=== PATIENT | female | born 1960 | race Caucasian/White ===

== ENCOUNTER 2021-01-25 11:03 | Emergency (ER) | payer OTHER ==
[2021-01-25] MEDS ORDERED: Pantoprazole 40 MG Vial IVPUSH ONE (11:42)
[2021-01-25] MEDS ORDERED: Alum Hydrox/Mag Hydrox/Simeth 30 ML, Lidocaine 2% 15 ML PO ONE ×2 (11:42)
[2021-01-25] MEDS ORDERED: Sodium Chloride 0.9% 1,000 ML IV SCH ×2 (11:45→15:15)
--- NOTE | 2021-01-25 11:51 | EDM.PDOC ---
ED HPI GENERAL MEDICAL PROBLEM - General Chief Complaint: Abdominal Pain Stated Complaint: VOMITING/LOSS OF APPETITE Time Seen by Provider: 01/25/21 11:17 Source of Information: Reports: Patient, RN Notes Reviewed History Limitations: Reports: No Limitations - History of Present Illness INITIAL COMMENTS - FREE TEXT/NARRATIVE: Patient is a 60-year-old female who presents to the ER for evaluation of her epigastric discomfort. The patient notes that she has been having these issues since around November. She was put on Zoloft for depression, and notes that her vomiting and epigastric discomfort started shortly after taking Zoloft. She states she has stopped taking this since then. Notes that she throws up all the time, even when she brushes her teeth. She did go to the [facility] in November, and was prescribed Zofran at that time, she states that she took 2 doses today however nothing seems to be helping much. States that she has not been able to keep much down. She feels shaky, slightly lightheaded when walking around, she is complaining of epigastric abdominal discomfort, like a burning in nature. States is there all the time. She has not had EGD, but has had colonoscopy in the past. Patient states that she has not had a fever, chills, cough or shortness of breath that has worsened for her. She states that she does not smoke, the last time she used alcohol was sometime in November around [facility] [place], she states this made her so sick that she has not drank alcohol since. She denies any illicit drug use. She states she has a history of hyper tension and thyroid issues. Middle Abdomen Pain Score (Numeric/FACES): 5 - Related Data Allergies Allergy/AdvReac Type Severity Reaction Status Date / Time PEMA Inhibitors Allergy Other Verified 01/25/21 11:16 Home Meds: Home Meds Cetirizine [ZyrTEC] 10 mg PO DAILY 01/25/21 [History] Levothyroxine Sodium [Synthroid] 75 mcg PO DAILY 01/25/21 [History] Metoprolol Succinate 50 mg PO DAILY 01/25/21 [History] Rosuvastatin [Crestor] 20 mg PO DAILY 01/25/21 [History] Spironolactone [Aldactone] 25 mg PO BID 01/25/21 [History] amLODIPine Besylate [Amlodipine Besylate] 10 mg PO DAILY 01/25/21 [History] Past Medical History HEENT History: Reports: Allergic Rhinitis Cardiovascular History: Reports: Hypertension Psychiatric History: Reports: Depression Endocrine/Metabolic History: Reports: Hypothyroidism ED ROS GENERAL - Review of Systems Review Of Systems: Comprehensive ROS is negative, except as noted in HPI. ED EXAM, GI/ABD - Physical Exam Exam: See Below Exam Limited By: No Limitations General Appearance: Alert, WD/WN, No Apparent Distress Throat/Mouth: Normal Inspection, Normal Lips, Normal Teeth, Normal Gums, Normal Oropharynx, Normal Voice, No Airway Compromise Respiratory/Chest: No Respiratory Distress, Lungs Clear, Normal Breath Sounds, No Accessory Muscle Use, Chest Non-Tender Cardiovascular: Normal Peripheral Pulses, Regular Rate, Rhythm, No Edema GI/Abdominal Exam: Normal Bowel Sounds, Soft, No Distention, No Mass, Tender (mild epigastric discomfort) Extremities: Normal Inspection, Normal Capillary Refill Neurological: Alert, Oriented, Normal Cognition, No Motor/Sensory Deficits Psychiatric: Normal Affect, Normal Mood Skin Exam: Warm, Dry, Intact, Normal Color, No Rash #1 Interpretation EKG Date: 01/25/21 Time: 11:56 Rhythm: NSR Rate (Beats/Min): 70 [place]: Normal P-Wave: Present QRS: Normal ST-T: Normal QT: Prolonged (QTC at 534) EKG Interpretation Comments: No obvious ischemia or acute ST changes noted, reviewed by myself and Dr. Lehman. Course - Vital Signs Last Recorded V/S: Last Vital Signs Temp 96.5 F L 01/25/21 11:23 Pulse 67 01/25/21 11:23 Resp 14 01/25/21 11:23 BP 142/96 H 01/25/21 11:23 Pulse Ox 94 L 01/25/21 11:23 - Orders/Labs/Meds Orders: Active Orders 24 hr Category Date Time Status EKG Documentation Completion [RC] STAT Care 01/25/21 11:41 Active COVID-19/FLU A+B [MOLEC] Stat Lab 01/25/21 14:10 Received UA W/MICROSCOPIC [URIN] Stat Lab 01/25/21 11:41 Ordered Potassium Chloride [KCl in Water 10 MEQ/100 ML] 10 meq Med 01/25/21 13:45 Active Premix Bag 1 bag IV Q1H Sodium Chloride 0.9% [Normal Saline] 1,000 ml Med 01/25/21 11:45 Active IV ASDIRECTED Sodium Chloride 0.9% [Saline Flush] Med 01/25/21 12:05 Active 10 ml FLUSH ONETIME PRN Medication Orders Sodium Chloride (Normal Saline) 1,000 mls @ 999 mls/hr IV ASDIRECTED SELENE Last Admin: 01/25/21 12:12 Dose: 999 mls/hr Documented by: YANICK Potassium Chloride 10 meq/ (Premix) 100 mls @ 100 mls/hr IV Q1H SELENE Stop: 01/25/21 17:44 Last Admin: 01/25/21 14:43 Dose: 100 mls/hr Documented by: ANGELIQUE Sodium Chloride (Sodium Chloride 0.9% 10 Ml Syringe) 10 ml FLUSH ONETIME PRN PRN Reason: IV FLUSH Last Admin: 01/25/21 12:28 Dose: 10 ml Documented by: Admin: 01/25/21 12:15 Dose: 10 ml Documented by: YANICK Labs: Laboratory Tests 01/25/21 01/25/21 01/25/21 Range/Units 12:10 12:10 12:10 WBC 12.53 H (3.98-10.04) K/mm3 RBC 4.31 (3.98-5.22) M/mm3 Hgb 14.0 (11.2-15.7) gm/dl Hct 41.1 (34.1-44.9) % MCV 95.4 H (79.4-94.8) fl MCH 32.5 H (25.6-32.2) pg MCHC 34.1 (32.2-35.5) g/dl RDW Std Deviation 45.1 (36.4-46.3) fL Plt Count 209 (182-369) K/mm3 MPV 9.8 (9.4-12.3) fl Neut % (Auto) 81.1 H (34.0-71.1) % Lymph % (Auto) 11.3 L (19.3-51.7) % [place] % (Auto) 6.5 (4.7-12.5) % Eos % (Auto) 0.8 (0.7-5.8) Baso % (Auto) 0.3 (0.1-1.2) % Neut # (Auto) 10.16 H (1.56-6.13) K/mm3 Lymph # (Auto) 1.41 (1.18-3.74) K/mm3 [place] # (Auto) 0.82 H (0.24-0.36) K/mm3 Eos # (Auto) 0.10 (0.04-0.36) K/mm3 Baso # (Auto) 0.04 (0.01-0.08) K/mm3 Sodium 136 (136-145) mEq/L Potassium 2.6 L (3.5-5.1) mEq/L Chloride 97 L (98-107) mEq/L Carbon Dioxide 29 (21-32) mEq/L Anion Gap 12.6 (5-15) BUN 28 H (7-18) mg/dL Creatinine 4.9 H (0.55-1.02) mg/dL Est Cr Clr Drug Dosing 12.02 mL/min Estimated GFR (MDRD) 9 (>60) mL/min BUN/Creatinine Ratio 5.7 L (14-18) Glucose 129 H (70-99) mg/dL Calcium 9.6 (8.5-10.1) mg/dL Magnesium (1.8-2.4) mg/dL Total Bilirubin 1.0 (0.2-1.0) mg/dL GGT 76 H (5-55) U/L AST 35 (15-37) U/L ALT 22 (14-59) U/L Alkaline Phosphatase 91 (46-116) U/L Troponin I 0.022 (0.00-0.056) ng/mL Total Protein 8.5 H (6.4-8.2) g/dl Albumin 3.1 L (3.4-5.0) g/dl Globulin 5.4 gm/dL Albumin/Globulin Ratio 0.6 L (1-2) Lipase 115 (73-393) U/L TSH 3rd Generation 0.421 (0.358-3.74) uIU/mL 01/25/21 Range/Units 12:10 WBC (3.98-10.04) K/mm3 RBC (3.98-5.22) M/mm3 Hgb (11.2-15.7) gm/dl Hct (34.1-44.9) % MCV (79.4-94.8) fl MCH (25.6-32.2) pg MCHC (32.2-35.5) g/dl RDW Std Deviation (36.4-46.3) fL Plt Count (182-369) K/mm3 MPV (9.4-12.3) fl Neut % (Auto) (34.0-71.1) % Lymph % (Auto) (19.3-51.7) % [place] % (Auto) (4.7-12.5) % Eos % (Auto) (0.7-5.8) Baso % (Auto) (0.1-1.2) % Neut # (Auto) (1.56-6.13) K/mm3 Lymph # (Auto) (1.18-3.74) K/mm3 [place] # (Auto) (0.24-0.36) K/mm3 Eos # (Auto) (0.04-0.36) K/mm3 Baso # (Auto) (0.01-0.08) K/mm3 Sodium (136-145) mEq/L Potassium (3.5-5.1) mEq/L Chloride (98-107) mEq/L Carbon Dioxide (21-32) mEq/L Anion Gap (5-15) BUN (7-18) mg/dL Creatinine (0.55-1.02) mg/dL Est Cr Clr Drug Dosing mL/min Estimated GFR (MDRD) (>60) mL/min BUN/Creatinine Ratio (14-18) Glucose (70-99) mg/dL Calcium (8.5-10.1) mg/dL Magnesium 1.7 L (1.8-2.4) mg/dL Total Bilirubin (0.2-1.0) mg/dL GGT (5-55) U/L AST (15-37) U/L ALT (14-59) U/L Alkaline Phosphatase (46-116) U/L Troponin I (0.00-0.056) ng/mL Total Protein (6.4-8.2) g/dl Albumin (3.4-5.0) g/dl Globulin gm/dL Albumin/Globulin Ratio (1-2) Lipase (73-393) U/L TSH 3rd Generation (0.358-3.74) uIU/mL Meds: Medications Generic Name Dose Route Start Last Admin Trade Name Freq PRN Reason Stop Dose Admin Sodium Chloride 1,000 mls @ 999 mls/hr 01/25/21 11:45 01/25/21 12:12 Normal Saline IV 999 mls/hr ASDIRECTED SELENE Administration Potassium Chloride 10 meq/ 100 mls @ 100 mls/hr 01/25/21 13:45 01/25/21 14:43 Premix IV 01/25/21 17:44 100 mls/hr Q1H SELENE Administration Sodium Chloride 10 ml 01/25/21 12:05 01/25/21 12:28 Sodium Chloride 0.9% 10 Ml Syringe FLUSH 10 ml ONETIME PRN Administration IV FLUSH Discontinued Medications Generic Name Dose Route Start Last Admin Trade Name Freq PRN Reason Stop Dose Admin Al Hydroxide/Mg Hydroxide 30 0 ml 01/25/21 11:42 01/25/21 12:13 ml/ Lidocaine HCl 15 ml PO 01/25/21 11:43 45 ml ONETIME ONE Administration Sodium Chloride 1,000 mls @ 999 mls/hr 01/25/21 13:37 01/25/21 14:10 Normal Saline IV 01/25/21 14:37 999 mls/hr ONETIME ONE Administration Promethazine HCl 25 mg/ Sodium 51 mls @ 100 mls/hr 01/25/21 13:42 01/25/21 14:41 Chloride IV 01/25/21 14:12 100 mls/hr ONETIME ONE Administration Iopamidol 100 ml 01/25/21 12:05 01/25/21 12:28 Iopamidol 612 Mg/Ml 100 Ml Bottle IVPUSH 01/25/21 12:06 100 ml ONETIME ONE Administration Pantoprazole Sodium 40 mg 01/25/21 11:42 01/25/21 12:12 Pantoprazole 40 Mg Vial IVPUSH 01/25/21 11:43 40 mg ONETIME ONE Administration Potassium Chloride 40 meq 01/25/21 13:38 01/25/21 14:42 Potassium Chloride 20 Meq Tab.Er PO 01/25/21 13:39 40 meq ONETIME ONE Administration - Re-Assessments/Exams Free Text/Narrative Re-Assessment/Exam: 01/25/21 11:50 Patient presents to the ER for her ongoing abdominal pain, for today's purposes we will go ahead and get a CT with IV contrast only, she is fairly nauseous and does not think she is able to keep the oral contrast down. We will get IV started give her some IV fluids, medications, and get a few labs for evaluation. If everything is structurally okay on the CT, we will plan to have her follow- up with surgeon on-call for possible EGD. 01/25/21 12:56 The patient's labs have started to result, CBC is mildly elevated at 12.53 with 81% neutrophils. CT has been performed as well, which awaiting official radiology read however I did preliminarily go over this with Dr. Lehman, there does not appear to be any sort of acute abnormalities identified by him or I. 01/25/21 13:[address] has been reported, there is slight bowel thickening within portions of the left jejunum difficult to exclude mild gastroenteritis. Labs have essentially resulted, metabolic panel is impressive for a low potassium at 2.6, elevated BUN at 28, elevated creatinine at 4.9, GFR low at 9, GGT at 76, TSH is within normal limits, troponin is 0.22. I did go over all of these laboratory findings with Dr. Lehman, he is concerned for possible [place]'s syndrome/acute renal failure vs other etiology and states that she would likely need hospi talization and does suggest sending to [place] for further work up. I have ordered a Covid screen at today's visit. Of note the patient's Covid vaccine (Moderna) has been completed on 01/12/2021. Dr. Lehman did also look through the patient's medication list and states that there does not seem to be any offending medication. 01/25/21 14:10 I was able to speak with [facility] in [place], and Dr. Alonso graciously accepted for transfer they state that there is no need to wait for the Covid swab, to go ahead and get the patient over to their facility and they will figure out where to place or if the Covid is positive should it result on the way to [place]. I will talk with nursing staff and we will get her IV potassium and fluids going as ordered, and get the ambulance called for transfer to [place]. 01/25/21 15:09 The patient will have a delayed transfer, due to ambulance staffing. Plan is to send the patient at around 6 PM our time to [place] via [facility] ambulance [facility]. Departure - Departure Time of Disposition: 14:10 Disposition: DC/Tfer to Acute Hospital 02 Condition: Fair Clinical Impression: Hypokalemia Acute renal failure Qualifiers: Acute renal failure type: unspecified Qualified Code(s): N17.9 - Acute kidney failure, unspecified - Discharge Information *PRESCRIPTION DRUG MONITORING PROGRAM REVIEWED*: No *COPY OF PRESCRIPTION DRUG MONITORING REPORT IN PATIENT BAHMAN: No Referrals: Alexia Vela MD [Primary Care Provider] - Forms: ED Department Discharge Sepsis Event Note (ED) - Evaluation Sepsis Screening Result: No Definite Risk - Focused Exam Vital Signs: Vital Signs Temp Pulse Resp BP Pulse Ox 01/25/21 11:23 96.5 F L 67 14 142/96 H 94 L - My Orders Last 24 Hours: My Active Orders 01/25/21 11:41 EKG Documentation Completion [RC] STAT UA W/MICROSCOPIC [URIN] Stat 01/25/21 11:45 Sodium Chloride 0.9% [Normal Saline] 1,000 ml IV ASDIRECTED 01/25/21 12:05 Sodium Chloride 0.9% [Saline Flush] 10 ml FLUSH ONETIME PRN 01/25/21 13:45 Potassium Chloride [KCl in Water 10 MEQ/100 ML] 10 meq Premix Bag 1 bag IV Q1H 01/25/21 14:10 COVID-19/FLU A+B [MOLEC] Stat - Assessment/Plan Last 24 Hours: My Active Orders 01/25/21 11:41 EKG Documentation Completion [RC] STAT UA W/MICROSCOPIC [URIN] Stat 01/25/21 11:45 Sodium Chloride 0.9% [Normal Saline] 1,000 ml IV ASDIRECTED 01/25/21 12:05 Sodium Chloride 0.9% [Saline Flush] 10 ml FLUSH ONETIME PRN 01/25/21 13:45 Potassium Chloride [KCl in Water 10 MEQ/100 ML] 10 meq Premix Bag 1 bag IV Q1H 01/25/21 14:10 COVID-19/FLU A+B [MOLEC] Stat
[2021-01-25] MEDS ORDERED: Iopamidol 612 MG/ML 100 ML Bottle IVPUSH ONE (12:05)
[2021-01-25] MEDS: Sodium Chloride 0.9% 10 ML Syringe FLUSH PRN ×2 (12:15→12:28)
--- NOTE | 2021-01-25 12:57 | CT ---
CT abdomen and pelvis Technique: Multiple axial sections were obtained from above the dome of the diaphragm inferiorly through the pubic symphysis. Intravenous contrast was utilized. No oral contrast has been given. Delayed images were also obtained through the bladder. Reconstructed coronal and sagittal images were obtained. Findings: Visualized lung bases show nothing acute. Liver contains no focal parenchymal abnormality. Gallbladder contains no calcified gallstones. Spleen appears within normal limits. Pancreas appears within normal limits. Abdominal aorta shows atherosclerotic change with no aneurysm. No retroperitoneal adenopathy is appreciated. No mesenteric abnormalities are seen. No pelvic mass or adenopathy is seen. Slight bowel wall thickening is noted within portions of the left-sided jejunum and difficult to exclude mild gastroenteritis. No free fluid or inflammatory change is otherwise seen. Delayed images show no contrast within the bladder raising the possibility of dehydration. Bone window settings were reviewed which show vacuum disc phenomena within the L5-S1 level. No acute osseous abnormality is appreciated. Impression: 1. Slight bowel wall thickening within portions of the left jejunum. Difficult to exclude mild gastroenteritis. 2. Other findings as noted above which are believed to be incidental for the patient's age. Diagnostic code #3
[2021-01-25] MEDS ORDERED: Sodium Chloride 0.9% 1,000 ML IV ONE (13:37)
[2021-01-25] MEDS ORDERED: Potassium Chloride 20 MEQ Tab.ER PO ONE (13:38)
[2021-01-25] MEDS ORDERED: Promethazine 25 MG in Sodium Chloride 0.9% 50 ML IV ONE (13:42)
[2021-01-25] MEDS: Potassium Chloride 10 MEQ in Premix Bag 1 BAG IV SCH ×4 (14:43→18:01)
[2021-01-25 15:30] LABS: CORONAVIRUS COVID-19 NAA NEGATIVE (NEGATIVE)
[2021-01-25 18:44] VITALS: BP 123/74; PULSE 61
== END 2021-01-25 18:43 ==
LOC: JD.ED 11:03
DX: N17.9 Acute kidney failure, unspecified (principal); E87.6 Hypokalemia; I10 Essential (primary) hypertension; E03.9 Hypothyroidism, unspecified; Z88.8 Allergy status to other drugs, medicaments and biological substances; Z79.899 Other long term (current) drug therapy; Z20.822 Contact with and (suspected) exposure to COVID-19
CPT/HCPCS: 0240U; 36415; 74177; 80053; 82977; 83690; 83735; 84443; 84484; 85025; 93005; 96365; 96366; 96375; 99285; A9270; C9113; J2550; J3480; J7030; Q9967; 93010

== ENCOUNTER 2023-10-02 11:09 | Emergency (ER) | payer OTHER ==
[2023-10-02 19:06] VITALS: BP 95/82; PULSE 82
== END 2023-10-02 15:15 | disposition home or self-care (01) ==
LOC: JD.ED 11:09
DX: J84.10 Pulmonary fibrosis, unspecified (principal); I10 Essential (primary) hypertension; E78.00 Pure hypercholesterolemia, unspecified; E03.9 Hypothyroidism, unspecified; Z79.899 Other long term (current) drug therapy; Z88.8 Allergy status to other drugs, medicaments and biological substances; Z86.16 Personal history of COVID-19
CPT/HCPCS: 71046; 71046-26; 93005; 93010; 99283; 99285

== ENCOUNTER 2023-10-31 10:06 | Emergency (ER) | payer OTHER ==
[2023-10-31] MEDS: Sodium Chloride 0.9% 10 ML Syringe FLUSH PRN (10:30)
[2023-10-31 11:16] LABS: HEMATOCRIT 17.1 % (37.0-47.0); IMMATURE GRAN ABSOLUTE AUTO 0.02 K/mm3 (0.00-0.05); LYMPHOCYTES ABSOLUTE AUTO 0.2 K/mm3 (1.0-4.8); LYMPHOCYTES PERCENT AUTO 11.2 % (24.0-44.0); MEAN CORPUSCULAR HEMOGLOBIN 39.3 pg (28.0-32.0); MEAN CORPUSCULAR HGB CONC 34.5 g/dl (32.0-36.0); MEAN PLATELET VOLUME 9.8 fl (9.4-12.3); MONOCYTES PERCENT AUTO 1.9 % (0.0-8.0); NEUTROPHILS ABSOLUTE AUTO 1.8 K/mm3 (1.8-7.7); NEUTROPHILS PERCENT AUTO 85.9 % (41.0-71.0); NRBC ABSOLUTE 0.03 (0.00-0.02); NRBC PERCENT 1.5 % (0.0-0.2); PLATELET COUNT,PLT 131 K/mm3 (150-400)
[2023-10-31 11:23] LABS: PROTHROMBIN TIME 9.9 SECONDS (9.7-12.0)
[2023-10-31 11:24] LABS: PTT,PARTIAL THROMBOPLSTIN TIME 24.1 SECONDS (21.7-31.4)
[2023-10-31 11:27] LABS: INR < 0.93
[2023-10-31 11:28] LABS: HEMOGLOBIN 5.9 gm/dl (12.0-16.0); WHITE BLOOD CELL COUNT,WBC 2.06 K/mm3 (3.9-11.3)
[2023-10-31 11:36] LABS: A/G RATIO 0.9 (1-2); ALBUMIN 3.6 g/dl (3.4-5.0); ANION GAP 17.5 (5-15); BILIRUBIN TOTAL 1.2 mg/dL (0.2-1.0); BUN/CREATININE RATIO 11.1 (14-18); C-REACTIVE PROTEIN 6.6 mg/dL (<1.0); CALCIUM 9.3 mg/dL (8.5-10.1); CREATININE 1.8 mg/dL (0.55-1.02); EST CRCL DRUG DOSING (CG) 31.51 mL/min; POTASSIUM,K 4.5 mEq/L (3.5-5.1); PROTEIN TOTAL,TP 7.6 g/dl (6.4-8.2)
[2023-10-31 12:05] LABS: SLIDE REVIEW ABNORMAL SMEAR
[2023-10-31] MEDS: Sodium Chloride 0.9% 1,000 ML IV SCH (13:58)
[2023-10-31 16:10] LABS: TSH 2.002 uIU/mL (0.358-3.74)
[2023-10-31 16:11] LABS: RETICULOCYTE COUNT PERCENT 2.85 % (0.50-2.00)
[2023-10-31 17:12] LABS: FOLIC ACID 11.1 ng/mL (8.6-58.9)
[2023-10-31 19:44] VITALS: BP 128/69; PULSE 73
[2023-11-01 11:46] LABS: MACRO 3+ /hpf; NEUTROPHILS% 88 % (41-71); TOXIC GRAN Seen (Absent)
== END 2023-10-31 19:50 | disposition home or self-care (01) ==
LOC: JD.ED 10:06
DX: D69.6 Thrombocytopenia, unspecified (principal); N28.9 Disorder of kidney and ureter, unspecified; D64.89 Other specified anemias; D70.9 Neutropenia, unspecified; I10 Essential (primary) hypertension; E03.9 Hypothyroidism, unspecified; Z79.899 Other long term (current) drug therapy; Z88.8 Allergy status to other drugs, medicaments and biological substances; Z86.16 Personal history of COVID-19
CPT/HCPCS: 36415; 36430; 80053; 82607; 82746; 83010; 83540; 83615; 84443; 84466; 85025; 85045; 85610; 85730; 86140; 86850; 86900; 86901; 86922; 99284; J3490; J7030; P9016